=== PATIENT | male | born 1990 | race Caucasian/White ===

== ENCOUNTER 2017-05-23 09:37 | Emergency (ER) | payer MEDICAID, OTHER ==
[~2017-05-23] VITALS: Ht 170.2 cm; Wt 68.0 kg
[2017-05-23] MEDS ORDERED: KETOROLAC 30MG/ML VIAL IM ONE (10:15)
[2017-05-23 11:41] VITALS: BP 112/72
== END 2017-05-23 11:43 | disposition home or self-care (01) ==
LOC: ER 10:01
DX: S62.397A Other fracture of fifth metacarpal bone, left hand, initial encounter for closed fracture (principal); F17.200 Nicotine dependence, unspecified, uncomplicated; W22.042A Striking against wall of swimming pool causing other injury, initial encounter; Y93.11 Activity, swimming; Y92.34 Swimming pool (public) as the place of occurrence of the external cause; Y99.8 Other external cause status
CPT/HCPCS: 29125; 73130; 96372; 99284; J1885